=== PATIENT | male | born 1945 | race Two or more races ===

== ENCOUNTER 2025-05-02 11:00 | Emergency (ER) | payer OTHER ==
[~2025-05-02] VITALS: Ht 180.3 cm; Wt 95.5 kg
--- NOTE | 2025-05-02 11:16 | ED.PDOC ---
HPI Comments This is a 79 year old male PASCALEA presenting to the ED with chief complaint of SVT. EMS reports that the patient was at [facility] for an eye examination, however, when having his vitals checked, he showed up as SVT with a heart rate of 135, calling 911. EMS relays that the patient had the same heart rate on their monitor, so they tried the vagal maneuver, IV fluids, and 6mg of Adenosine with no conversion noted. Patient states that he has no complaints at this time. Patient denies any chest pain, SOB, nausea, vomiting, dizziness, or syncope. Time Seen by MD: 11:14 Reviewed Notes: Nurses Notes, Displayer Notes, Medications, Allergies Allergies: Coded Allergies: NO KNOWN ALLERGIES (Unverified , 05/02/25) Information Source: Patient, Emergency Med Personnel Mode of Arrival: EMS Severity: Moderate Timing: Hours Duration: Since onset Prehospital treatment: 12 Lead EKG, IVF Onset: At Rest Cardiac Risk Factors: Hyperlipidemia, HTN, Diabetes PE Risk Factors: None History of: None Past Medical History PAST MEDICAL HISTORY: Cancer, COPD, DM, High Lipids, HTN Surgical History (Other): Cataract surgery Family History Family History: Reviewed,noncontributory to illness Social History Smoker: Non-Smoker Alcohol: Denies ETOH Use Drugs: Denies Drug Use Lives In: Home Constitutional: denies: chills, diaphoresis, fatigue, fever, malaise, sweats, weakness, others EENTM: denies: blurred vision, double vision, ear bleeding, ear discharge, ear drainage, ear pain, ear ringing, eye pain, eye redness, hearing loss, mouth pain, mouth swelling, nasal discharge, nose bleeding, nose congestion, nose pain, photophobia, tearing, throat pain, throat swelling, voice changes, others Respiratory: denies: cough, hemoptysis, orthopnea, SOB at rest, shortness of breath, SOB with excertion, stridor, wheezing, others Cardiovascular: denies: chest pain, dizzy spells, diaphoresis, Dyspnea on exertion, edema, irregular heart beat, left arm pain, lightheadedness, palpitations, PND, syncope, others Gastrointestinal: denies: abdomen distended, abdominal pain, blood streaked bowels, constipated, diarrhea, dysphagia, difficulty swallowing, hematemesis, melena, nausea, poor appetite, poor fluid intake, rectal bleeding, rectal pain, vomiting, others Genitourinary: denies: burning, dysuria, flank pain, frequency, hematuria, incontinence, penile discharge, penile sore, pain, testicle pain, testicle swelling, urgency, others Neurological: denies: dizziness, fainting, headache, left sided numbness, left sided weakness, numbness, paresthesia, pre-existing deficit, right sided numbness, right sided weakness, seizure, speech problems, tingling, tremors, weakness, others Musculoskeletal: denies: back pain, gout, joint pain, joint swelling, muscle pain, muscle stiffness, neck pain, others Integumetry: denies: bruises, change in color, change in hair/nails, dryness, laceration, lesions, lumps, rash, wounds, others Allergic/Immunocompromised: denies: Difficulty Healing, Frequent Infections, Hives, Itching, others Hematologic/Lymphatic: denies: anemia, blood clots, easy bleeding, easy bruising, swollen glands, others Endocrine: denies: excessive hunger, excessive sweating, excessive thirst, excessive urination, flushing, intolerance to cold, intolerance to heat, unexplained weight gain, unexplained weight loss, others Psychiatric: denies: anxiety, bipolar disorder, depression, hopeless, panic disorder, schizophrenia, sleepless, suicidal, others All Other Systems: Reviewed and Negative Physical Exam General Appearance: No Apparent Distress HEENT: Normal ENT Inspection, Pharynx Normal, TMs Normal Neck: Full Range of Motion, Non-Tender, Normal, Normal Inspection Respiratory: Chest Non-Tender, Lungs Clear, No Accessory Muscle Use, No Respiratory Distress, Normal Breath Sounds Cardiovascular: No Edema, No JVD, No Murmur, No Gallop, Tachycardia Breast Exam: Deferred Gastrointestinal: No Organomegaly, Non Tender, No Pulsatile Mass, Normal Bowel Sounds, Soft Genitalia: Deferred Pelvic: Deferred Rectal: Deferred Extremities: No calf tenderness, Normal capillary refill, Normal inspection, Normal range of motion, Non-tender, No pedal edema Musculoskeletal : Apperance: Normal Neurologic: Alert, assurance auditor II-XII nml as Tested, No Motor Deficits, Normal Affect, Normal Mood, No Sensory Deficits Cerebellar Function: Normal Reflexes: Normal Skin: Dry, Normal Color, Warm Lymphatic: No Adenopathy EKG EKG : Pulse Rate (adult): 134 [place]: RAD Cardiac Rhythm: ST Block: None Hypertrophy: LAE ST: Normal Was a procedure done? Was a procedure done?: No CP Differential Dx Differential Diagnosis: Angina, ME, Pulmonary Embolus Differential Diagnosis: CHF Differential Diagnosis: Pericarditis X-Ray, Labs, Meds, VS Vital Signs Date Time Temp Pulse Resp B/P (MAP) Pulse Ox O2 Delivery O2 Flow Rate FiO2 05/02/25 14:45 119 104/60 05/02/25 14:25 120 05/02/25 14:00 117 17 109/69 (82) 97 05/02/25 12:34 137 107/71 05/02/25 12:30 97.7 134 20 107/71 (83) 95 97.7 05/02/25 12:30 134 20 95 Room Air* 0 21 05/02/25 12:05 134 05/02/25 12:00 132 05/02/25 11:16 134 05/02/25 11:12 98.9 135 18 113/73 (86) 95 98.9 05/02/25 11:02 134 Lab Test 05/02/25 14:21 05/02/25 13:04 05/02/25 11:20 Range/Units Urine Color Light-yellow Yellow Urine Clarity Clear Clear Urine pH 6.0 5.0-9.0 Urine Specific [place] 1.026 1.001-1.035 Urine Protein Negative Negative Urine Ketones Negative Negative Urine Blood Negative Negative /uL Urine Nitrite Negative Negative Urine Bilirubin Negative Negative Urine Urobilinogen Normal Negative mg/dL Urine Leukocyte Esterase Negative Negative /uL Urine RBC <1 0 - 3 /hpf Urine Microscopic WBC 0-3 /HPF Urine Squamous Epithelial Cells None seen <5 /hpf Urine Bacteria None seen None Seen /hpf Urine Glucose 4+ H Normal mg/dL Troponin I High Sensitivity 8 9 </=54 ng/L White Blood Count 6.0 4.4-10.8 10^3/uL Red Blood Count 4.71 4.5-5.90 10^6/uL Hemoglobin 15.3 13.5-17.5 g/dL Hematocrit 44.3 41.0-53.0 % Mean Corpuscular Volume 94.0 80.0-100.0 fL Mean Corpuscular Hemoglobin 32.5 H 28.0-32.0 pg Mean Corpuscular Hemoglobin Concent 34.6 32.0-36.0 g/dL Red Cell Distribution Width 14.8 H 11.8-14.3 % Platelet Count 151 140-450 10^3/uL Mean Platelet Volume 6.8 L 6.9-10.8 fL Neutrophils (%) (Auto) 53.7 37.0-80.0 % Lymphocytes (%) (Auto) 37.3 10.0-50.0 % Monocytes (%) (Auto) 8.0 0.0-12.0 % Eosinophils (%) (Auto) 0.6 0.0-7.0 % Basophils (%) (Auto) 0.4 0.0-2.0 % Neutrophils # (Auto) 3.2 1.6-8.6 10 ^3/uL Lymphocytes # (Auto) 2.2 0.4-5.4 10 ^3/uL Monocytes # (Auto) 0.5 0-1.3 10 ^3/uL Eosinophils # (Auto) 0 0-0.8 10 ^3/uL Basophils # (Auto) 0 0-0.2 10 ^3/uL Nucleated Red Blood Cells 0.2 % D-Dimer, Quantitative 0.19 0.0-0.49 mg/L FEU Sodium Level 142 136-145 mmol/L Potassium Level 4.3 3.5-5.1 mmol/L Chloride Level 106 98-107 mmol/L Carbon Dioxide Level 28 20-31 mmol/L Anion Gap 8 5-15 Blood Urea Nitrogen 16 9-23 mg/dL Creatinine 0.93 0.700-1.30 mg/dL Glomerular Filtration Rate Calc 82 >90 mL/min BUN/Creatinine Ratio 17.2 10.0-20.0 Serum Glucose 151 H 74-106 mg/dL Calcium Level 10.4 8.7-10.4 mg/dL Magnesium Level 2.0 1.6-2.6 mg/dL Current Medications Medications (Trade) Dose Ordered Sig/[place] Route Start Time Stop Time Status Last Admin Sodium Chloride 1,000 ml @ 1,000 mls/hr Q1H ONCE IV 05/02/25 11:15 05/02/25 12:14 DC 05/02/25 12:35 Labetalol HCl (Labetalol HCl) 20 mg ONCE ONCE IV 05/02/25 11:15 05/02/25 11:16 DC 05/02/25 12:34 Chest XR indicates: Mild reactive airways disease. The lungs are otherwise clear. IV Hep-Lock was established. The patient was given a 1 L bolus of normal saline. For the elevated heart rate, the patient was given labetalol 20 mg IV push The patient was also given normal saline at a 500 cc bolus initially. The patient's heart rate did come down to about 107. The patient's CBC and chemistry panel are within normal limits The troponin level x2 is negative The D-dimer was done which is also negative We do not feel that this patient has any PE risk so we did not explore a CAT scan of the chest to rule out PE The patient is not complaining of any chest pain or shortness for breath. We did speak with the doctor at [facility] and the patient is being transferred at this time. They did give us an authorization number for the ER treatment Images Reviewed?: Images reviewed and evaluated by me Time of 1ST Reevaluation: 15:45 Reevaluation 1ST: Unchanged Patient Education/Counseling: Diagnosis, Treatment, Prognosis Family Education/Counseling: Diagnosis, Treatment, Prognosis Additional Information Reviewed patient's previous visit(s): none The following tests were ordered, and results were reviewed by me: CBC, BMP, Tro ponin, Magnesium, UA, EKG, Chest XR Additional information was gathered from interviewing the following independent historian: EMS I reviewed and agreed with the following test results read by other provider: Chest XR I discussed treatments and results with medical personnel and: Patient Comprehensive systems review obtained and negative except for what is stated in the HPI. SEPSIS Sepsis Screen Physician Orders Chest Portable (05/02/25 11:07) Heplock Iv (05/02/25 11:07) Button Sawyer (05/02/25 11:07) Blood Pressure (05/02/25 11:07) Pulse Oximetry (05/02/25 11:07) Troponin-I Hs (05/02/25 14:07) Electrocardigram (05/02/25 12:07) Electrocardigram (05/02/25 14:07) Vital Signs Date Time Temp Pulse Resp B/P (MAP) Pulse Ox O2 Delivery O2 Flow Rate FiO2 05/02/25 14:45 119 104/60 05/02/25 14:25 120 05/02/25 14:00 117 17 109/69 (82) 97 05/02/25 12:34 137 107/71 05/02/25 12:30 97.7 134 20 107/71 (83) 95 97.7 05/02/25 12:30 134 20 95 Room Air* 0 21 05/02/25 12:05 134 05/02/25 12:00 132 05/02/25 11:16 134 05/02/25 11:12 98.9 135 18 113/73 (86) 95 98.9 05/02/25 11:02 134 Laboratory Tests Test 05/02/25 11:20 White Blood Count 6.0 10^3/uL (4.4-10.8) Medications Medications Dose Ordered Sig/[place]hel Route Start Time Stop Time Status Last Admin Dose Admin Labetalol HCl 20 mg ONCE ONCE IV 05/02/25 11:15 05/02/25 11:16 DC 05/02/25 12:34 Sodium Chloride 1,000 ml @ 1,000 mls/hr Q1H ONCE IV 05/02/25 11:15 05/02/25 12:14 DC 05/02/25 12:35 Departure 1 Departure Time of Disposition: 15:46 Impression: Primary Impression: Tachycardia Disposition: 51 HOSPICE/MEDICAL FACILITY Condition: Fair Critical Care Note Critical Care Time?: Yes (45 min-critical care time only) Stability Stability form required: Yes Stable for transfer: Intended for transfer (Health plan request transfer), To designated facility Heart Score Heart Score: Heart Score Response (Comments) Value History Highly Suspicious 2 EKG Repolarization Disturb 1 Age >65 2 Risk Factors >3 or Hx ASHD 2 Troponin Normal limit 0 Total 7 I personally scribed for LINCOLN AVILA MD ([email or web address]) on 05/02/25 at 11:16. Electronically submitted by Kane Sanchez ([email or web address]). I personally scribed for LINCOLN AVILA MD ([email or web address]) on 05/02/25 at 13:03. Electronically submitted by Kane Sanchez ([email or web address]). LINCOLN AVILA MD May 02, 2025 11:16
--- NOTE | 2025-05-02 11:24 | ECG ---
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
--- NOTE | 2025-05-02 11:34 | DVH ---
EXAM: XY CHEST PORTABLE HISTORY: weakness COMPARISON: None TECHNIQUE: Portable AP view of the chest was performed. FINDINGS: No pneumothorax, consolidative infiltrates, or pulmonary edema. There is mild central peribronchial t hickening. The heart is not enlarged. IMPRESSION: Mild reactive airways disease. The lungs are otherwise clear.
[2025-05-02 11:37] LABS: Hematocrit 44.3 % (41.0-53.0); Hemoglobin 15.3 g/dL (13.5-17.5); Mean Corpuscular Hemoglobin 32.5 pg (28.0-32.0); Mean Corpuscular Volume 94.0 fL (80.0-100.0); Nucleated Red Blood Cells % 0.2 %
[2025-05-02 11:44] LABS: Chloride 106 mmol/L (98-107); Potassium 4.3 mmol/L (3.5-5.1); Sodium 142 mmol/L (136-145)
[2025-05-02 11:45] LABS: Anion Gap 8 (5-15); Calcium 10.4 mg/dL (8.7-10.4); Carbon Dioxide 28 mmol/L (20-31)
[2025-05-02 11:50] LABS: BUN/Creatinine Ratio 17.2 (10.0-20.0); Blood Urea Nitrogen 16 mg/dL (9-23)
[2025-05-02 11:51] LABS: Glucose 151 mg/dL (74-106); Magnesium 2.0 mg/dL (1.6-2.6)
[2025-05-02 12:30] VITALS: PULSE 134; RESP 20; O2SAT 95
[2025-05-02] MEDS: LABETALOL HCL 20 MG/4 ML VL IV ONE (12:34)
[2025-05-02] MEDS: SODIUM CHLORIDE 0.9% 1,000 ML IV ONE (12:35)
[2025-05-02 15:02] LABS: Urine Protein, UAD Negative (Negative)
[2025-05-02 16:08] VITALS: BP 102/51; PULSE 114; RESP 16; TEMP 98.2; O2SAT 95
--- NOTE | 2025-05-02 19:10 | ECG ---
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
--- NOTE | 2025-05-02 19:10 | ECG ---
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
== END 2025-05-02 16:15 | disposition short-term general hospital (02) ==
LOC: ER 11:00 → EDBD 11:00 → ER 16:15
DX: R00.0 Tachycardia, unspecified (principal); E11.9 Type 2 diabetes mellitus without complications; I10 Essential (primary) hypertension; J44.9 Chronic obstructive pulmonary disease, unspecified; Z98.890 Other specified postprocedural states
CPT/HCPCS: 36415; 71045; 80048; 81001; 83735; 84484; 85025; 85379; 93005; 96361; 96374; 99285; J7030